=== PATIENT | female | born 1980 | race Caucasian/White ===

== ENCOUNTER 2019-06-24 23:01 | Emergency (ER) | payer OTHER ==
[~2019-06-24] VITALS: Ht 175.3 cm; Wt 86.6 kg
== END 2019-06-25 05:30 | disposition home or self-care (01) ==
LOC: ER 23:01
DX: O20.0 Threatened abortion (principal)

== ENCOUNTER 2020-01-13 13:45 | Inpatient (IN) | payer OTHER ==
[~2020-01-13] VITALS: Ht 175.3 cm; Wt 102.1 kg
[2020-01-18] MEDS ORDERED: PRENATAL PLUS1 EAC1 (22:24)
== END 2020-01-21 17:50 | disposition home or self-care (01) | DRG 807 ==
LOC: OB/GYN 01-19 10:18 → LDR 01-19 10:18 → OB/GYN 01-20 00:43 → EDBD 01-26 13:45
PROVIDERS: ADMIT Obstetrics & Gynecology
PROC: 4A1HXCZ Monitoring of Products of Conception, Cardiac Rate, External Approach (ICD-10-PCS; 2020-01-19)
PROC: 10E0XZZ Delivery of Products of Conception, External Approach (ICD-10-PCS; principal; 2020-01-20)
PROC: 0HQ9XZZ Repair Perineum Skin, External Approach (ICD-10-PCS; 2020-01-20)
PROC: 4A033R1 Measurement of Arterial Saturation, Peripheral, Percutaneous Approach (ICD-10-PCS; 2020-01-20)
DX: O70.0 First degree perineal laceration during delivery (principal); Z37.0 Single live birth; Z22.330 Carrier of Group B streptococcus; Z3A.39 39 weeks gestation of pregnancy

== ENCOUNTER 2020-01-18 21:40 | Outpatient (CLI) | payer OTHER ==
[2020-01-18] MEDS ORDERED: PRENATAL PLUS1 EAC1 (22:24)
== END 2020-01-19 10:30 | disposition still patient (30) ==
LOC: OBS/DEL 21:40
DX: O48.0 Post-term pregnancy (principal)